=== PATIENT | female | born 1985 | race Caucasian/White ===

== ENCOUNTER 2017-01-13 11:30 | Observation (INO) ==
--- NOTE | 2017-01-13 11:45 | Emergency Department Note ---
Disposition Clinical Impression: Suicidal ideation Depression Qualifiers: Depression Type: unspecified Qualified Code(s): F32.9 - Major depressive disorder, single episode, unspecified Disposition: Admitted As Inpatient Condition: Fair Referrals: NONE,PCP [Primary Care Provider] - Forms: ED Satisfaction Letter Time of Disposition: 14:01 Psych HPI - General Chief Complaint: ED Psychiatric Symptoms Stated Complaint: SI Time Seen by Provider: 01/13/17 11:35 Source: patient Mode of arrival: ambulatory Limitations: no limitations Nursing Notes Reviewed: Yes Vital Signs Reviewed: Yes - History of Present Illness Pt complaint: suicidal ideation, feels depressed, anxiety Onset (ago): day(s) Duration: constant History of similar episodes: Yes Improves with: none Worsens with: none Alleged intoxication: No Associated Psychiatric Symptoms: depression, anxiety Associated symptoms: Reports: denies other symptoms Traumatic symptoms: denies traumatic injury Treatments prior to arrival: none Self harm or harm to others: admits thoughts of self harm - Related Data Previous Rx's Medication Instructions Recorded Ferrous Sulfate 325 mg PO BIDWM #30 tablet 11/29/15 Folic Acid 1 mg PO DAILY #30 tablet 11/29/15 HYDROcodone/Acet 5/325 mg [[place] 1 tab PO Q6H PRN #10 tab 04/15/16 5-325 mg] Allergies Allergy/AdvReac Type Severity Reaction Status Date / Time Amoxicillin Allergy Hives Verified 01/13/17 11:35 Cephalosporins Allergy Hives Verified 01/13/17 11:35 Penicillins Allergy Hives Verified 01/13/17 11:35 shellfish derived Allergy Difficulty Verified 01/13/17 11:35 Breathing All systems ED: reviewed and negative except as stated. Constitutional: Reports: as per HPI Eyes: Reports: as per HPI ENT ED: Reports: as per HPI Cardiovascular: Reports: as per HPI Respiratory: Reports: as per HPI Gastrointestinal: Reports: as per HPI Genitourinary: Reports: as per HPI Musculoskeletal: Reports: as per HPI Integumentary: Reports: as per HPI Neurological: Reports: as per HPI Psychiatric: Reports: anxiety, depression, suicidal thoughts Endocrine: Reports: as per HPI Hematological/Lymphatic: Reports: as per HPI Allergic/Immunologic: Reports: as per HPI Past Medical History - Past Medical History Source: patient Medical history: Reports: migraine, other Surgical history: Reports: (twice), other (tonsillectomy) Psychiatric history: Reports: no psych history [employer] history: Reports: no [employer]ACHINE [employer]PER[employer] history - Social History Smoking Status: Never smoker Smokeless Tobacco Status: No Alcohol use: Reports: none Drug use: Reports: none Physical Exam - General Limitations: no limitations General appearance: alert, in no apparent distress - Head Head exam: atraumatic - Eye Eye exam: Present: normal appearance, PERRL - ENT ENT exam: normal exam - Neck Neck exam: Present: normal inspection, full ROM - Chest Chest inspection: Present: normal inspection, symmetric chest wall rise - Respiratory Respiratory exam: Present: normal lung sounds bilaterally - Cardiovascular Cardiovascular exam: Present: regular rate, normal rhythm, normal heart sounds - Rectal Exam Rectal exam: Present: deferred - Extremities Exam Extremities exam: Present: normal inspection - Neurological Exam Neurological exam: Present: alert, oriented X3, CN II-XII intact - Psychiatric Psychiatric exam: Present: normal affect, normal mood - Skin Skin exam: Present: warm, dry, intact Course Course Narrative: Patient arrives complaining of anxiety and depression. I will attempt to clear her medically for behavioral evaluation - Reevaluation(s) Reevaluation #1: cleared medically for 1A behavioral eval at 12:25 Vital Signs Temperature 98.7 F 01/13/17 11:32 Pulse Rate 98 01/13/17 11:32 Respiratory Rate 16 01/13/17 11:32 Blood Pressure 161/95 01/13/17 11:32 O2 Sat by Pulse Oximetry 100 01/13/17 11:32 Temperature 98.7 F 01/13/17 11:32 Pulse Rate 98 01/13/17 11:32 Respiratory Rate 16 01/13/17 11:32 Blood Pressure 161/95 01/13/17 11:32 O2 Sat by Pulse Oximetry 100 01/13/17 11:32 Oxygen Delivery Oxygen Delivery Room Air Psych - Lab Data Lab results reviewed: Yes I reviewed the patient's lab results. Result diagrams: 01/13/17 11:47 01/13/17 11:47 Lab Results 01/13/17 01/13/17 01/13/17 Range/Units 11:46 11:46 11:46 WBC (4.3-11.1) K/mcL RBC (3.82-4.97) M/mcL Hgb (11.5-15.4) g/dL Hct (35.3-44.9) % MCV (83.0-100.0) fL MCH (28.0-33.3) pg MCHC (31.6-35.5) g/dL RDW (11.5-14.5) % Plt Count (140-400) K/mcL MPV (9.4-12.4) fL Immature Gran % (0-4) % Seg Neutrophils % % Lymphocytes % % Monocytes % % Eosinophils % % Basophils % % Neutrophils # (1.6-8.9) K/mcL Lymphocytes # (0.6-4.6) K/mcL Monocytes # (0.0-1.3) K/mcL Eosinophils # (0.0-0.6) K/mcL Basophils # (0.0-0.2) K/mcL Sodium (136-145) mEq/L Potassium (3.5-4.5) mEq/L Chloride (98-109) mEq/L Carbon Dioxide (19-29) mEq/L BUN (7-20) mg/dL Creatinine (0.57-1.11) mg/dL Est GFR ( Amer) (> 60) Est GFR (Non-Af Amer) (> 60) BUN/Creatinine Ratio (6-26) Glucose (70-99) mg/dL Calculated Osmolality (280-300) Calcium (8.6-10.8) mg/dL Urine Color Yellow (Yellow) Urine Clarity Clear (Clear) Urine pH 6.0 (5.0-8.0) pH Units Ur Specific [place] 1.030 H (1.010-1.025) Urine Protein Negative (Neg-Trace) mg/dL Urine Glucose (UA) Normal (Normal) mg/dL Urine Ketones Negative (Negative) mg/dL Urine Blood Negative (Negative) Urine Nitrite Negative (Negative) Urine Bilirubin Negative (Negative) Urine Urobilinogen Normal (Normal) mg/dL Ur Leukocyte Esterase Negative (Negative) Ur Culture Indicated? NO (NO) Urine Test Negative (Negative) Salicylates (15-30) mg/dL Urine Opiates Screen Negative (Yckjho=489) ng/mL Acetaminophen (10-30) mcg/mL Ur Barbiturates Screen Negative (Aufstu=704) ng/mL Ur Phencyclidine Scrn Negative (Cutoff=25) ng/mL Ur Amphetamines Screen Negative (Bvnwsp=4485) ng/mL U Benzodiazepines Scrn Negative (Sibzcp=860) ng/mL Urine Cocaine Screen Negative (Cutoff= 300) ng/mL U Marijuana (THC) Screen Negative (Cutoff = 50) ng/mL Ethyl Alcohol (0-10) mg/dL 01/13/17 01/13/17 Range/Units 11:47 11:47 WBC 5.7 (4.3-11.1) K/mcL RBC 4.72 (3.82-4.97) M/mcL Hgb 10.5 L (11.5-15.4) g/dL Hct 35.8 (35.3-44.9) % MCV 75.8 L (83.0-100.0) fL MCH 22.2 L (28.0-33.3) pg MCHC 29.3 L (31.6-35.5) g/dL RDW 16.5 H (11.5-14.5) % Plt Count 220 (140-400) K/mcL MPV 8.7 L (9.4-12.4) fL Immature Gran % 0.2 (0-4) % Seg Neutrophils % 73.8 % Lymphocytes % 19.9 % Monocytes % 4.5 % Eosinophils % 0.9 % Basophils % 0.7 % Neutrophils # 4.2 (1.6-8.9) K/mcL Lymphocytes # 1.1 (0.6-4.6) K/mcL Monocytes # 0.3 (0.0-1.3) K/mcL Eosinophils # 0.1 (0.0-0.6) K/mcL Basophils # 0.0 (0.0-0.2) K/mcL Sodium 139 (136-145) mEq/L Potassium 3.6 (3.5-4.5) mEq/L Chloride 107 (98-109) mEq/L Carbon Dioxide 21 (19-29) mEq/L BUN 12 (7-20) mg/dL Creatinine 0.89 (0.57-1.11) mg/dL Est GFR ( Amer) > 60 (> 60) Est GFR (Non-Af Amer) > 60 (> 60) BUN/Creatinine Ratio 13 (6-26) Glucose 109 H (70-99) mg/dL Calculated Osmolality 288 (280-300) Calcium 9.3 (8.6-10.8) mg/dL Urine Color (Yellow) Urine Clarity (Clear) Urine pH (5.0-8.0) pH Units Ur Specific [place] (1.010-1.025) Urine Protein (Neg-Trace) mg/dL Urine Glucose (UA) (Normal) mg/dL Urine Ketones (Negative) mg/dL Urine Blood (Negative) Urine Nitrite (Negative) Urine Bilirubin (Negative) Urine Urobilinogen (Normal) mg/dL Ur Leukocyte Esterase (Negative) Ur Culture Indicated? (NO) Urine Test (Negative) Salicylates < 5.0 L (15-30) mg/dL Urine Opiates Screen (Xpbhvl=212) ng/mL Acetaminophen < 1.0 L (10-30) mcg/mL Ur Barbiturates Screen (Eghejl=723) ng/mL Ur Phencyclidine Scrn (Cutoff=25) ng/mL Ur Amphetamines Screen (Fmpthw=8933) ng/mL U Benzodiazepines Scrn (Ypyphz=871) ng/mL Urine Cocaine Screen (Cutoff= 300) ng/mL U Marijuana (THC) Screen (Cutoff = 50) ng/mL Ethyl Alcohol < 10 (0-10) mg/dL Psychiatric Medical Clearance - Medical Clearance Checklist Medical History: Vaginal bleeding (Acute) Symptomatic anemia (Acute) PCOS (polycystic ovarian syndrome) (Chronic) Obesity (BMI 30-39.9) (Chronic) RUQ abdominal pain (Inactive) Severe anemia (Inactive) No Social History Section defined Current Vitals: Last Vital Signs Temp 98.7 F 01/13/17 11:32 Pulse 98 01/13/17 11:32 Resp 16 01/13/17 11:32 BP 161/95 01/13/17 11:32 Pulse Ox 100 01/13/17 11:32 Psychiatric Lab Panel: Drug Levels and Toxicity 01/13/17 01/13/17 11:46 11:47 Urine Opiates Screen Negative Acetaminophen < 1.0 L Ur Barbiturates Screen Negative Ur Phencyclidine Scrn Negative Ur Amphetamines Screen Negative U Benzodiazepines Scrn Negative Urine Cocaine Screen Negative U Marijuana (THC) Screen Negative Ethyl Alcohol < 10 Abnormal Labs: Abnormal lab results Hgb 10.5 g/dL (11.5-15.4) L 01/13/17 11:47 MCV 75.8 fL (83.0-100.0) L 01/13/17 11:47 MCH 22.2 pg (28.0-33.3) L 01/13/17 11:47 MCHC 29.3 g/dL (31.6-35.5) L 01/13/17 11:47 RDW 16.5 % (11.5-14.5) H 01/13/17 11:47 MPV 8.7 fL (9.4-12.4) L 01/13/17 11:47 Glucose 109 mg/dL (70-99) H 01/13/17 11:47 Ur Specific [place] 1.030 (1.010-1.025) H 01/13/17 11:46 Salicylates < 5.0 mg/dL (15-30) L 01/13/17 11:47 Acetaminophen < 1.0 mcg/mL (10-30) L 01/13/17 11:47 Statement of Medical Clearance: I have evaluated the patient, reviewed diagnostic information, and certify that the patient's medical condition is sufficiently stable that transfer to the psychiatric unit does not pose a significant risk of deterioration.
[2017-01-13 11:52] LABS: Bilirubin,Urine Negative (Negative); Blood,Urine Negative (Negative); Clarity,Urine Clear (Clear); Color,Urine Yellow (Yellow); Glucose,Urine (UA) Normal (Normal); Ketones,Urine Negative (Negative); Leukocyte Esterase,Urine Negative (Negative); Nitrite,Urine Negative (Negative); Protein,Urine Negative (Neg-Trace); Urobilinogen,Urine Normal (Normal)
[2017-01-13 11:55] LABS: Eosinophils % 0.9 %; Hematocrit 35.8 % (35.3-44.9); Hemoglobin 10.5 g/dL (11.5-15.4); Immature Granulocytes % 0.2 % (0-4); Lymphocytes % 19.9 %; Mean Corpuscular HGB Conc 29.3 g/dL (31.6-35.5); Mean Corpuscular Hemoglobin 22.2 pg (28.0-33.3); Mean Corpuscular Volume 75.8 fL (83.0-100.0); Mean Platelet Volume 8.7 fL (9.4-12.4); Monocytes % 4.5 %; Platelet Count 220 K/mcL (140-400); Red Blood Count 4.72 M/mcL (3.82-4.97); Red Cell Distribution Width 16.5 % (11.5-14.5); Segmented Neutrophils % 73.8 %
[2017-01-13 11:56] LABS: Basophils % 0.7 %; Eosinophils # 0.1 K/mcL (0.0-0.6); Lymphocytes # 1.1 K/mcL (0.6-4.6); Monocytes # 0.3 K/mcL (0.0-1.3); Neutrophils # 4.2 K/mcL (1.6-8.9)
[2017-01-13 12:10] LABS: Acetaminophen < 1.0 mcg/mL (10-30); BUN/Creatinine Ratio 13 (6-26); Blood Urea Nitrogen 12 mg/dL (7-20); Calcium 9.3 mg/dL (8.6-10.8); Carbon Dioxide 21 mEq/L (19-29); Chloride 107 mEq/L (98-109); Ethanol < 10 mg/dL (0-10); Glucose 109 mg/dL (70-99); Osmolality,Calculated 288 (280-300); Potassium 3.6 mEq/L (3.5-4.5); Salicylate < 5.0 mg/dL (15-30); Sodium 139 mEq/L (136-145); eGFR For African Americans > 60 (> 60); eGFR For Non-African Americans > 60 (> 60)
[2017-01-13 12:23] LABS: Amphetamine Screen,Urine Negative ng/mL (Cutoff=1000); Barbiturate Screen,Urine Negative ng/mL (Cutoff=200); Benzodiazepines Screen,Urine Negative ng/mL (Cutoff=200); Cannabinoid Screen,Urine Negative ng/mL (Cutoff = 50); Cocaine Screen,Urine Negative ng/mL (Cutoff= 300); Opiate Screen,Urine Negative ng/mL (Cutoff=300); Phencyclidine Screen,Urine Negative ng/mL (Cutoff=25)
[2017-01-13] MEDS ORDERED: Mag Hydrox/Al Hydrox/Simeth 30 ML UDC PO PRN (15:39)
[2017-01-13] MEDS ORDERED: MOM Conc 10 ML UD.LIQ PO PRN (15:39)
[2017-01-13] MEDS ORDERED: hydrOXYzine pamoate 25 MG CAPSULE PO PRN (15:39)
[2017-01-13] MEDS ORDERED: Ibuprofen 400 MG TABLET PO PRN (15:39)
[2017-01-13] MEDS ORDERED: *HR* LORazepam 2 MG/ML VIAL IM PRN (15:39)
[2017-01-13] MEDS ORDERED: Haloperidol Lactate 5 MG/ML VIAL IM PRN (15:39)
[2017-01-13] MEDS ORDERED: *HR* LORazepam 1 MG TABLET PO PRN (15:39)
[2017-01-13] MEDS ORDERED: traZODone 50 MG TABLET PO PRN (15:39)
[2017-01-13 17:58] LABS: Thyroid Stimulating Hormone 1.121 mcIU/mL (0.350-4.840)
[2017-01-14 08:04] VITALS: BP 124/82
--- NOTE | 2017-01-14 10:40 | Psychiatry History & Physical ---
Date of Encounter: 01/14/17 Time of Encounter: 10:25 History of Present Illness Patient Stated Chief Complaint: i think it was miscommunication Medicare Admission Attestation: For traditional Medicare patients the provided hospital inpatient services are reasonable and necessary and in the case of services not specified as inpatient -only under 42 CFR 419.22 (n), that they are appropriately provided as inpatient services in accordance 42 CFR 412.3. For Critical Access Hospital the patient may reasonably be expected to be discharged or transferred to a hospital within 96 hours after admission to the Critical Access Hospital. Admitted From: Emergency Dept Plans for Post Hospital Care: Home History of Present Illness: Ms. Mantilla is a 31 year old MW female evaluated today , she presented to ER with depression and suicidal thoughts but no plan , was admitted for observation , she feels that after argument with her last week she felt nothing , constant crying , feeling over whelmed, missed work 2 days then she bought herself to ER to get help, as i tried and could not. she has no prior psych history , she live and 2 girls, she works as counsellor. she denies any drug history , no psychosis , denies manic episode . she at present is sad , unhappy but no suicidal ideation or plan. states i would never hurt yourself , states when i was 16 i used to cut my self , but none since. medical: she has h/o chronic anaemia sec. to mennorhagia and has had ablation done. she is getting tested for lupus. other than that no other medical problems. Past Med Surg Social Fam HX - Past Medical History Source: patient Medical history: migraine, other - Past Surgical History Surgical History: , other - Social History Smoking Status: Never smoker Smokeless Tobacco Status: No Alcohol use: none Drug use: none Medications & Allergies No Known Home Drugs 01/13/17 [History] 3 Allergy/AdvReac Type Severity Reaction Status Date / Time Amoxicillin Allergy Hives Verified 01/13/17 11:35 Cephalosporins Allergy Hives Verified 01/13/17 11:35 Penicillins Allergy Hives Verified 01/13/17 11:35 shellfish derived Allergy Difficulty Verified 01/13/17 11:35 Breathing Review of Systems Psychiatric: Reports: depression, abnormal sleep pattern, difficulty concentrating Mental Status Exam Patient orientation: Yes Person, Yes Time, Yes Place Level of alertness: Alert Patient appearance: Appropriate Behavior: calm, cooperative Psychomotor activity: Normal Eye contact: Maintains Eye Contact Mood description: Euthymic/stable Patient description of mood: i feel content and hopeful and there is clarity. Affect description: congruent with mood Speech pattern: Normal rate, Normal rhythm, Normal tone, Coherent Exam - HEENT Head exam IM: Present: atraumatic, normal inspection, normocephalic Eye exam IM: Present: normal appearance ENT exam IM: Present: normal exam - Neurological Neurological exam IM: Present: alert, CN II-XII intact, normal gait, oriented X3 , no focal deficits Results - Vital Signs Vital signs: Temp Pulse Resp BP Pulse Ox 97.5 F L 68 18 124/82 100 01/14/17 08:03 01/14/17 08:03 01/14/17 08:03 01/14/17 08:03 01/13/17 11:32 - Labs Labs: Laboratory Last Values WBC 5.7 K/mcL (4.3-11.1) 01/13/17 11:47 RBC 4.72 M/mcL (3.82-4.97) 01/13/17 11:47 Hgb 10.5 g/dL (11.5-15.4) L 01/13/17 11:47 Hct 35.8 % (35.3-44.9) 01/13/17 11:47 MCV 75.8 fL (83.0-100.0) L 01/13/17 11:47 MCH 22.2 pg (28.0-33.3) L 01/13/17 11:47 MCHC 29.3 g/dL (31.6-35.5) L 01/13/17 11:47 RDW 16.5 % (11.5-14.5) H 01/13/17 11:47 Plt Count 220 K/mcL (140-400) 01/13/17 11:47 MPV 8.7 fL (9.4-12.4) L 01/13/17 11:47 Immature Gran % 0.2 % (0-4) 01/13/17 11:47 Seg Neutrophils % 73.8 % 01/13/17 11:47 Lymphocytes % 19.9 % 01/13/17 11:47 Monocytes % 4.5 % 01/13/17 11:47 Eosinophils % 0.9 % 01/13/17 11:47 Basophils % 0.7 % 01/13/17 11:47 Neutrophils # 4.2 K/mcL (1.6-8.9) 01/13/17 11:47 Lymphocytes # 1.1 K/mcL (0.6-4.6) 01/13/17 11:47 Monocytes # 0.3 K/mcL (0.0-1.3) 01/13/17 11:47 Eosinophils # 0.1 K/mcL (0.0-0.6) 01/13/17 11:47 Basophils # 0.0 K/mcL (0.0-0.2) 01/13/17 11:47 Sodium 139 mEq/L (136-145) 01/13/17 11:47 Potassium 3.6 mEq/L (3.5-4.5) 01/13/17 11:47 Chloride 107 mEq/L (98-109) 01/13/17 11:47 Carbon Dioxide 21 mEq/L (19-29) 01/13/17 11:47 BUN 12 mg/dL (7-20) 01/13/17 11:47 Creatinine 0.89 mg/dL (0.57-1.11) 01/13/17 11:47 Est GFR ( Amer) > 60 (> 60) 01/13/17 11:47 Est GFR (Non-Af Amer) > 60 (> 60) 01/13/17 11:47 BUN/Creatinine Ratio 13 (6-26) 01/13/17 11:47 Glucose 109 mg/dL (70-99) H 01/13/17 11:47 Calculated Osmolality 288 (280-300) 01/13/17 11:47 Calcium 9.3 mg/dL (8.6-10.8) 01/13/17 11:47 TSH 1.121 mcIU/mL (0.350-4.840) 01/13/17 11:47 Urine Color Yellow (Yellow) 01/13/17 11:46 Urine Clarity Clear (Clear) 01/13/17 11:46 Urine pH 6.0 pH Units (5.0-8.0) 01/13/17 11:46 Ur Specific [place] 1.030 (1.010-1.025) H 01/13/17 11:46 Urine Protein Negative mg/dL (Neg-Trace) 01/13/17 11:46 Urine Glucose (UA) Normal mg/dL (Normal) 01/13/17 11:46 Urine Ketones Negative mg/dL (Negative) 01/13/17 11:46 Urine Blood Negative (Negative) 01/13/17 11:46 Urine Nitrite Negative (Negative) 01/13/17 11:46 Urine Bilirubin Negative (Negative) 01/13/17 11:46 Urine Urobilinogen Normal mg/dL (Normal) 01/13/17 11:46 Ur Leukocyte Esterase Negative (Negative) 01/13/17 11:46 Ur Culture Indicated? NO (NO) 01/13/17 11:46 Urine Test Negative (Negative) 01/13/17 11:46 Salicylates < 5.0 mg/dL (15-30) L 01/13/17 11:47 Urine Opiates Screen Negative ng/mL (Rhvfbj=862) 01/13/17 11:46 Acetaminophen < 1.0 mcg/mL (10-30) L 01/13/17 11:47 Ur Barbiturates Screen Negative ng/mL (Yxfjyt=288) 01/13/17 11:46 Ur Phencyclidine Scrn Negative ng/mL (Cutoff=25) 01/13/17 11:46 Ur Amphetamines Screen Negative ng/mL (Ubgsnb=4250) 01/13/17 11:46 U Benzodiazepines Scrn Negative ng/mL (Qcusqu=273) 01/13/17 11:46 Urine Cocaine Screen Negative ng/mL (Cutoff= 300) 01/13/17 11:46 U Marijuana (THC) Screen Negative ng/mL (Cutoff = 50) 01/13/17 11:46 Ethyl Alcohol < 10 mg/dL (0-10) 01/13/17 11:47
--- NOTE | 2017-01-14 10:46 | Discharge Summary ---
Date of Encounter: 01/14/17 Time of Encounter: 10:20 History of Present Illness Chief complaint: it was miscommunication Admitted From: Emergency Dept History of Present Illness: Ms. Mantilla is a 31 year old MW female evaluated today , she presented to ER with depression and suicidal thoughts but no plan , was admitted for observation , she feels that after argument with her last week she felt nothing , constant crying , feeling over whelmed, missed work 2 days then she bought herself to ER to get help, as i tried and could not. she has no prior psych history , she live and 2 girls, she works as counsellor. she denies any drug history , no psychosis , denies manic episode . she at present is sad , unhappy but no suicidal ideation or plan. she has some anxiety and in past has had panic attacks. states i would never hurt yourself , states when i was 16 i used to cut my self , but none since. medical: she has h/o chronic anaemia sec. to mennorhagia and has had ablation done. she is getting tested for lupus. other than that no other medical problems. Patient will be discharged today , lives with her family. follow with S[facility] Reagan and PCP Dr Torres Past Med Surg Social Fam HX - Past Medical History Medical history: migraine, other - Past Psychiatric History Psychiatric history: Reports: no psych history Family psychiatric history: Yes Family Psychiatric History Details: father dx with bi[olar and alcohol dependence Family History of Suicide: None - Past Surgical History Surgical History: , other - Social History Smoking Status: Never smoker Smokeless Tobacco Status: No Alcohol use: none Drug use: none Occupational status: employed Current living situation: Home, With Family Activity Level: Independent ambulation Recent Out of Country Travel Within the Last 8 Weeks: No Exposure or Possible Exposure to Illness During Travel: No Medications - Discharge Medications Prescriptions: Sertraline [Zoloft] 50 mg PO DAILY #30 tablet traZODone [TraZODone] 50 mg PO HS PRN #20 tablet PRN Reason: Insomnia Sertraline [Zoloft] 50 mg PO DAILY #30 tablet 01/14/17 [Rx] traZODone [TraZODone] 50 mg PO HS PRN #20 tablet 01/14/17 [Rx] 3 Allergy/AdvReac Type Severity Reaction Status Date / Time Amoxicillin Allergy Hives Verified 01/13/17 11:35 Cephalosporins Allergy Hives Verified 01/13/17 11:35 Penicillins Allergy Hives Verified 01/13/17 11:35 shellfish derived Allergy Difficulty Verified 01/13/17 11:35 Breathing Review of Systems Psychiatric: Reports: depression, abnormal sleep pattern, difficulty concentrating Mental Status Exam - Mental Status Exam Patient orientation: Yes Person, Yes Time, Yes Place Level of alertness: Alert Patient appearance: Appropriate Behavior: calm, cooperative Psychomotor activity: Normal Eye contact: Maintains Eye Contact Mood description: Euthymic/stable Patient description of mood: i feel content and hopeful. Affect description: congruent with mood Speech pattern: Normal rate, Normal rhythm, Normal tone, Coherent Speech Volume: Normal Thought process: Intact Thought Content: Yes Intact Judgment: Good Insight: Full Results - Vital Signs Vital signs: Temp Pulse Resp BP Pulse Ox 97.5 F L 68 18 124/82 100 01/14/17 08:03 01/14/17 08:03 01/14/17 08:03 01/14/17 08:03 01/13/17 11:32 - Labs Labs: Laboratory Last Values WBC 5.7 K/mcL (4.3-11.1) 01/13/17 11:47 RBC 4.72 M/mcL (3.82-4.97) 01/13/17 11:47 Hgb 10.5 g/dL (11.5-15.4) L 01/13/17 11:47 Hct 35.8 % (35.3-44.9) 01/13/17 11:47 MCV 75.8 fL (83.0-100.0) L 01/13/17 11:47 MCH 22.2 pg (28.0-33.3) L 01/13/17 11:47 MCHC 29.3 g/dL (31.6-35.5) L 01/13/17 11:47 RDW 16.5 % (11.5-14.5) H 01/13/17 11:47 Plt Count 220 K/mcL (140-400) 01/13/17 11:47 MPV 8.7 fL (9.4-12.4) L 01/13/17 11:47 Immature Gran % 0.2 % (0-4) 01/13/17 11:47 Seg Neutrophils % 73.8 % 01/13/17 11:47 Lymphocytes % 19.9 % 01/13/17 11:47 Monocytes % 4.5 % 01/13/17 11:47 Eosinophils % 0.9 % 01/13/17 11:47 Basophils % 0.7 % 01/13/17 11:47 Neutrophils # 4.2 K/mcL (1.6-8.9) 01/13/17 11:47 Lymphocytes # 1.1 K/mcL (0.6-4.6) 01/13/17 11:47 Monocytes # 0.3 K/mcL (0.0-1.3) 01/13/17 11:47 Eosinophils # 0.1 K/mcL (0.0-0.6) 01/13/17 11:47 Basophils # 0.0 K/mcL (0.0-0.2) 01/13/17 11:47 Sodium 139 mEq/L (136-145) 01/13/17 11:47 Potassium 3.6 mEq/L (3.5-4.5) 01/13/17 11:47 Chloride 107 mEq/L (98-109) 01/13/17 11:47 Carbon Dioxide 21 mEq/L (19-29) 01/13/17 11:47 BUN 12 mg/dL (7-20) 01/13/17 11:47 Creatinine 0.89 mg/dL (0.57-1.11) 01/13/17 11:47 Est GFR ( Amer) > 60 (> 60) 01/13/17 11:47 Est GFR (Non-Af Amer) > 60 (> 60) 01/13/17 11:47 BUN/Creatinine Ratio 13 (6-26) 01/13/17 11:47 Glucose 109 mg/dL (70-99) H 01/13/17 11:47 Calculated Osmolality 288 (280-300) 01/13/17 11:47 Calcium 9.3 mg/dL (8.6-10.8) 01/13/17 11:47 TSH 1.121 mcIU/mL (0.350-4.840) 01/13/17 11:47 Urine Color Yellow (Yellow) 01/13/17 11:46 Urine Clarity Clear (Clear) 01/13/17 11:46 Urine pH 6.0 pH Units (5.0-8.0) 01/13/17 11:46 Ur Specific [place] 1.030 (1.010-1.025) H 01/13/17 11:46 Urine Protein Negative mg/dL (Neg-Trace) 01/13/17 11:46 Urine Glucose (UA) Normal mg/dL (Normal) 01/13/17 11:46 Urine Ketones Negative mg/dL (Negative) 01/13/17 11:46 Urine Blood Negative (Negative) 01/13/17 11:46 Urine Nitrite Negative (Negative) 01/13/17 11:46 Urine Bilirubin Negative (Negative) 01/13/17 11:46 Urine Urobilinogen Normal mg/dL (Normal) 01/13/17 11:46 Ur Leukocyte Esterase Negative (Negative) 01/13/17 11:46 Ur Culture Indicated? NO (NO) 01/13/17 11:46 Urine Test Negative (Negative) 01/13/17 11:46 Salicylates < 5.0 mg/dL (15-30) L 01/13/17 11:47 Urine Opiates Screen Negative ng/mL (Rrrbis=573) 01/13/17 11:46 Acetaminophen < 1.0 mcg/mL (10-30) L 01/13/17 11:47 Ur Barbiturates Screen Negative ng/mL (Uvzihs=771) 01/13/17 11:46 Ur Phencyclidine Scrn Negative ng/mL (Cutoff=25) 01/13/17 11:46 Ur Amphetamines Screen Negative ng/mL (Afmtaj=5715) 01/13/17 11:46 U Benzodiazepines Scrn Negative ng/mL (Qyyulp=317) 01/13/17 11:46 Urine Cocaine Screen Negative ng/mL (Cutoff= 300) 01/13/17 11:46 U Marijuana (THC) Screen Negative ng/mL (Cutoff = 50) 01/13/17 11:46 Ethyl Alcohol < 10 mg/dL (0-10) 01/13/17 11:47 Diagnosis - Discharge Diagnosis (1) Suicidal ideation Status: Resolved Comments: patient not suicidal or homicidal (2) Major depressive disorder with single episode Status: Acute Comments: patient at present denies any significant depression , wanted help and denies any suicidal ideation. at present not in immenent danger to self/others Qualifiers: Active/Remission status: currently active Major depression episode severity : moderate Qualified Code(s): F32.1 - Major depressive disorder, single episode, moderate Assessment and Plan - Patient/Caregiver Discharge Instructions Activity: resume usual activities as tolerated, return to work Diet: regular diet - Follow up Plan Follow up with: NONE,PCP [Primary Care Provider] - Functional capacity at discharge: independent ambulation Overall status at discharge: patient is back to baseline Disposition: Home, Self-Care Provider Date of admission: 01/13/17 14:17 Patient was evaluated and was put on observation as bought self to ER c/o depression and suicidal ideation but no plan , she wanted help as she could not get in to see anyone early, netta she came to ER , she has good support system, 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 she denied any side effects and feels better today , no suicidal ideation and slept well , wants to be discharged as not in immenent danger to self/others at present. Primary care physician: PCP NONE Hospital Course Hospital course: Ms. Mantilla is a 31 year old female was admitted for observation , for depression and suicidal ideation , she denies any at present and not in danger to self. she was started on zoloft and trazodone and it has helped her sleep, she denies side effects. she was given appointment for psychiatrist and her PCP. Time spent discussing smoking cessation with patient: 3 to 10 minutes Does patient wish to continue nicotine replacement upon disc: No - Time Spent with Patient Total time spent providing and/or coordinating discharge services: Greater than 30 minutes Procedures - Procedures Procedures: Medication Management, Crisis Stabilization, Supportive Therapy, Group Therapy Quality - Multiple Antipsychotics Patient discharged on 2 or more antipsychotic medications: No
== END 2017-01-14 12:35 | disposition home or self-care (01) ==
LOC: 1ANU 11:30 → EMEROO 11:30 → 1ANU 14:40
PROVIDERS: ADMIT Psychiatry & Neurology Psychiatry; ATTEND Psychiatry & Neurology Psychiatry

== ENCOUNTER 2018-07-28 08:48 | Observation (INO) ==
--- NOTE | 2018-07-28 09:04 | Emergency Department Note ---
Disposition Clinical Impression: Facial droop Migraine Qualifiers: Migraine type: unspecified Status migrainosus presence: with status migrainosus Intractability: intractable Qualified Code(s): G43.911 - Migraine, unspecified, intractable, with status migrainosus Disposition: Admitted As Inpatient Condition: Fair Time of Disposition: 16:16 Headache HPI - General Chief Complaint: ED Headache Stated Complaint: migraine, "facial droop" Time Seen by Provider: 07/28/18 08:53 Limitations: no limitations Nursing Notes Reviewed: Yes Vital Signs Reviewed: Yes - History of Present Illness HPI Narrative: 33-year-old female presents emergency Department with concerns of acute onset headache and right facial droop. Patient states she has had a headache over the past 2-3 days, she woke this morning with right-sided facial droop. Patient denies other focal neurologic deficits. Patient is unchanged. Patient denies fever, chills, nausea, vomiting, diarrhea. No recent trauma. No changes in medications. Patient states she has a history of lupus and sarcoidosis. Pain Scale: 8 - Related Data Home Medications Medication Instructions Recorded Confirmed Amitriptyline [Elavil] 25 mg PO DAILY 07/28/18 07/28/18 Atorvastatin Calcium [Lipitor] 20 mg PO DAILY 07/28/18 07/28/18 Baclofen 10 mg PO PRN PRN MDD 3 07/28/18 07/28/18 Erenumab-Aooe [Aimovig 70 mg SQ QMONTH 07/28/18 07/28/18 Autoinjector] Hydroxychloroquine Sulfate 200 mg PO BID 07/28/18 07/28/18 [Plaquenil] Ibuprofen [Ibu] 800 mg PO TID 07/28/18 07/28/18 Lamotrigine [Lamictal (Blue)] 50 mg PO BID 07/28/18 07/28/18 Pantoprazole Sodium [Protonix] 40 mg PO DAILY 07/28/18 07/28/18 Prazosin [Minipress] 1 mg PO DAILY 07/28/18 07/28/18 Sertraline [Zoloft] 200 mg PO DAILY 07/28/18 07/28/18 hydrOXYzine HCl [Hydroxyzine HCl] 100 mg PO TID 07/28/18 07/28/18 Previous Rx's Medication Instructions Recorded Metoclopramide [Reglan] 10 mg PO QIDAC #12 tablet 02/19/17 Allergies Allergy/AdvReac Type Severity Reaction Status Date / Time Amoxicillin Allergy Hives Verified 01/13/17 11:35 Cephalosporins Allergy Hives Verified 01/13/17 11:35 Penicillins Allergy Hives Verified 01/13/17 11:35 shellfish derived Allergy Difficulty Verified 01/13/17 11:35 Breathing All systems ED: reviewed and negative except as stated. Review of Systems: As Per HPI Headache PMH - Past Medical History Medical history: Reports: migraine, other Female Surgical History: Reports: , other Psychiatric history: Reports: no psych history G[employer] AND SILVER ASSAYER history: Reports: no GOLD AND SILVER ASSAYER history - Social History Smoking Status: Never smoker Alcohol use: Reports: none Drug use: Reports: none Physical Exam General: Alert and in no acute distress Skin: Warm, dry, intact Head: Normocephalic and atraumatic Neck: Supple, trachea midline and no tenderness Cardiovascular: RRR, no murmur, normal perfusion Respiratory: CTAB, no wheezing, cough, or respiratory distress Musculoskeletal: Normal strength, no tenderness, swelling or deformity GI: Soft, nontender, nondistended. Bowel sounds present Neuro: A&O to person, place, time and situation. Patient has right facial droop to exam. Forehead is spared. Extraocular muscle intact to examination. Pupils are equal and reactive to light bilaterally. Bilateral upper extremity and lower extremity strength intact. [id number] and unit dose testing intact. Psychiatric: cooperative and appropriate mood and affect. - General Limitations: no limitations General appearance: alert, in no apparent distress Course Vital Signs Temperature 98.5 F 07/28/18 08:51 Pulse Rate 85 07/28/18 08:51 Respiratory Rate 14 07/28/18 08:51 Blood Pressure 159/99 07/28/18 08:51 O2 Sat by Pulse Oximetry 100 07/28/18 08:51 Temperature 98.1 F 07/28/18 15:01 Pulse Rate 79 07/28/18 15:01 Respiratory Rate 18 07/28/18 15:01 Blood Pressure 110/77 07/28/18 15:01 O2 Sat by Pulse Oximetry 98 07/28/18 15:01 Oxygen Delivery Oxygen Delivery Room Air Headache - MDM Narrative Medical decision making narrative: Stroke alert was called during the initial evaluation. [facility] neurology evaluated the patient via telephone neurology. 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 Neurology recommended patient be treated for her headache and admitted if her symptoms did not improve. Patient was given migraine cocktail emergency department with moderate improvement in her headache but with persistence of the facial droop. She was admitted to hospitalist for further care and evaluation. - Medical Records Medical records reviewed: Yes I reviewed the patient's medical records. - Lab Data Lab results reviewed: Yes I reviewed the patient's lab results. Result diagrams: 07/28/18 09:11 07/28/18 09:11 Lab Results 07/28/18 07/28/18 07/28/18 Range/Units 08:52 09:11 09:11 WBC 5.9 (4.3-11.1) K/mcL RBC 4.61 (3.82-4.97) M/mcL Hgb 14.0 (11.5-15.4) g/dL Hct 41.5 (35.3-44.9) % MCV 90.0 (83.0-100.0) fL MCH 30.4 (28.0-33.3) pg MCHC 33.7 (31.6-35.5) g/dL RDW 13.5 (11.5-14.5) % Plt Count 168 (140-400) K/mcL MPV 8.9 L (9.4-12.4) fL PT 11.4 (9.4-12.1) Seconds INR 1.0 APTT 32.0 (26.0-36.0) Seconds Sodium (136-145) mEq/L Potassium (3.5-5.1) mEq/L Chloride (98-107) mEq/L Carbon Dioxide (23-29) mEq/L BUN (6-20) mg/dL Creatinine (0.60-1.20) mg/dL Est GFR ( Amer) (> 60) Est GFR (Non-Af Amer) (> 60) BUN/Creatinine Ratio (6-26) Glucose (70-105) mg/dL POC Glucose 98 (70-99) mg/dL Calculated Osmolality (280-300) Calcium (8.6-10.3) mg/dL Troponin I (< 0.04) ng/mL 06/18/19 Range/Units 09:11 WBC (4.3-11.1) K/mcL RBC (3.82-4.97) M/mcL Hgb (11.5-15.4) g/dL Hct (35.3-44.9) % MCV (83.0-100.0) fL MCH (28.0-33.3) pg MCHC (31.6-35.5) g/dL RDW (11.5-14.5) % Plt Count (140-400) K/mcL MPV (9.4-12.4) fL PT (9.4-12.1) Seconds INR APTT (26.0-36.0) Seconds Sodium 137 (136-145) mEq/L Potassium 4.1 (3.5-5.1) mEq/L Chloride 107 (98-107) mEq/L Carbon Dioxide 23 (23-29) mEq/L BUN 12 (6-20) mg/dL Creatinine 0.81 (0.60-1.20) mg/dL Est GFR ( Amer) > 60 (> 60) Est GFR (Non-Af Amer) > 60 (> 60) BUN/Creatinine Ratio 15 (6-26) Glucose 110 H (70-105) mg/dL POC Glucose (70-99) mg/dL Calculated Osmolality 284 (280-300) Calcium 9.1 (8.6-10.3) mg/dL Troponin I < 0.03 (< 0.04) ng/mL - Radiology Data Radiology results reviewed: Yes I reviewed the patient's radiology results. - EKG Data EKG attestation: Yes I reviewed and interpreted this EKG. EKG results narrative: Normal sinus rhythm with a rate of 78 without evidence of STEMI or other dysrhythmia. QTC of 453, QRS of 98.
[2018-07-28 09:15] LABS: Hematocrit 41.5 % (35.3-44.9); Mean Corpuscular HGB Conc 33.7 g/dL (31.6-35.5); Mean Corpuscular Hemoglobin 30.4 pg (28.0-33.3); Mean Platelet Volume 8.9 fL (9.4-12.4); Platelet Count 168 K/mcL (140-400); Red Blood Count 4.61 M/mcL (3.82-4.97); Red Cell Distribution Width 13.5 % (11.5-14.5); White Blood Count 5.9 K/mcL (4.3-11.1)
[2018-07-28] MEDS ORDERED: Metoclopramide 10 MG/2 ML VIAL IVP ONE (09:16)
[2018-07-28] MEDS ORDERED: Ketorolac 15 MG/ML VIAL IVP ONE (09:16)
[2018-07-28] MEDS ORDERED: 0.9 % Sodium Chloride 1,000 ML IVC ONE (09:17)
[2018-07-28 09:23] LABS: Prothrombin Time 11.4 Seconds (9.4-12.1)
[2018-07-28 09:39] LABS: BUN/Creatinine Ratio 15 (6-26); Blood Urea Nitrogen 12 mg/dL (6-20); Calcium 9.1 mg/dL (8.6-10.3); Carbon Dioxide 23 mEq/L (23-29); Chloride 107 mEq/L (98-107); Glucose 110 mg/dL (70-105); Osmolality,Calculated 284 (280-300); Potassium 4.1 mEq/L (3.5-5.1); Sodium 137 mEq/L (136-145); Troponin I < 0.03 ng/mL (< 0.04); eGFR For African Americans > 60 (> 60); eGFR For Non-African Americans > 60 (> 60)
[2018-07-28] MEDS ORDERED: Aspirin 81 MG TAB.CHEW PO ONE (11:25)
[2018-07-28] MEDS ORDERED: Naloxone 0.4 MG/ML INJ IVP PRN (13:49)
[2018-07-28] MEDS ORDERED: Ondansetron 4 MG/2 ML VIAL IVP PRN ×2 (13:49→14:34)
[2018-07-28] MEDS ORDERED: Acetaminophen 325 MG TABLET PO PRN (13:49)
--- NOTE | 2018-07-28 14:10 | Internal Med History&Physical ---
<Kristi Zavala - Last Filed: 07/28/18 16:24> Date of Encounter: 07/28/18 Time of Encounter: 14:07 Internal Medicine - H&P: HPI Chief complaint: headache Admitted From: Emergency Dept Plans for Post Hospital Care: Home History of present illness: Ms. José is a 33 year old female with past medical history of lupus, sarcoidosis, migraines presented to [facility] complaining of headache and facial droop. The patient reported that her headache started Friday and has been constant since with the feeling of deep ache. This feels similar to previous migraines however in the past it was on the top of her head and this time it is more localized to the top right. She has associated aura, photosensitivity, noise sensitivity, nausea, vomiting, and diplopia. Laying down a quiet room has helped. 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 Yesterday the left side of her neck was hurting but has since resolved. She came to the hospital because this morning she woke up and the right side of her face felt heavy and numb and when she looked in the mere she had right facial droop. In the past only her eye has ever felt heavy. She reports she has been to the ED multiple times in the past when her migraines make her vomit and she is given medications which help relieve the migraine and then she is discharged. She denied trauma, confusion, loss of vision, weakness, chest pain, shortness of breath, fever, chills. She has history of migraines for which she takes Aimovig and Trokendi prophylactically which have decreased her migraines from 2 times a week to 2 times a month. 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 She denied smoking, alcohol, drug use. No personal or family history of clotting disorder. Her grandmother and grandfather mom side did of IA. She is a full code. Initial vitals in the ED were tempter 98.5, HR 85, BP 159/99. CBC, BMP, PT/INR, troponin were all unremarkable. Head CT showed no acute intracranial abnormality. In the ED the patient was given Reglan, Toradol, Benadryl, aspirin 324 mg, IVF bolus. Brain MRI pending. Past Med Surg Social Fam HX - Past Medical History Attestation: Yes The following information was validated with the patient. Source: patient Medical history: migraine, other Additional medical history: SLE, Sjogren Psychiatric history: no psych history - Past Surgical History Surgical History: , other Additional surgical history: D&C, ablation - Social History Smoking Status: Never smoker Smokeless Tobacco Status: No Alcohol use: none Drug use: none - Family History Grandmother Hx Family Cardiac Disorders: Yes (IA) Internal Medicine - H&P: Meds Metoclopramide [Reglan] 10 mg PO QIDAC #12 tablet 02/19/17 [Rx] Amitriptyline [Elavil] 25 mg PO DAILY 07/28/18 [History] Atorvastatin Calcium [Lipitor] 20 mg PO DAILY 07/28/18 [History] Baclofen 10 mg PO PRN PRN MDD 3 07/28/18 [History] Erenumab-Aooe [Aimovig Autoinjector] 70 mg SQ QMONTH 07/28/18 [History] Hydroxychloroquine Sulfate [Plaquenil] 200 mg PO BID 07/28/18 [History] Ibuprofen [Ibu] 800 mg PO TID 07/28/18 [History] Lamotrigine [Lamictal (Blue)] 50 mg PO BID 07/28/18 [History] Pantoprazole Sodium [Protonix] 40 mg PO DAILY 07/28/18 [History] Prazosin [Minipress] 1 mg PO DAILY 07/28/18 [History] Sertraline [Zoloft] 200 mg PO DAILY 07/28/18 [History] hydrOXYzine HCl [Hydroxyzine HCl] 100 mg PO TID 07/28/18 [History] Allergy/AdvReac Type Severity Reaction Status Date / Time Amoxicillin Allergy Hives Verified 01/13/17 11:35 Cephalosporins Allergy Hives Verified 01/13/17 11:35 Penicillins Allergy Hives Verified 01/13/17 11:35 shellfish derived Allergy Difficulty Verified 01/13/17 11:35 Breathing All Systems PM: A 10-system review of systems was performed and is negative for pertinent findings except as documented above in the HPI. - Constitutional Constitutional: no chills, no fever(s) - EENT Eyes: diplopia, photophobia Nose, mouth and throat: neck pain - Cardiovascular Cardiovascular ROS IM: no chest pain, no dyspnea - Respiratory Respiratory: no cough, no dyspnea, no wheezing - Gastrointestinal Gastrointestinal: nausea, vomiting, no abdominal pain - Integumentary Integumentary IM: no rash, no skin ulcer - Neurological Neurological ROS: headache(s), numbness (Right face), no abnormal gait, no abnormal speech, no confusion, no convulsions, no loss of vision, no weakness - Psychiatric Psychiatric: no confusion - Constitutional Vitals: Temp Pulse Resp BP Pulse Ox 98.5 F 82 18 119/78 99 07/28/18 08:51 07/28/18 11:47 07/28/18 11:47 07/28/18 11:47 07/28/18 11:47 Exam: Gen.: Vitals noted. No acute distress. AAOx3 HEENT: oropharynx clear, Normocephalic, atraumatic Cardiac: RRR, no murmur, +S1/S2 Pulmonary: CTA bilaterally, no wheezes, rales or rhonchi, equal chest expansion Abdomen: soft, nontender, Bowel sounds noted, no guarding MSK: ROM intact, no joint swelling noted Extremities: no BLE edema, nontender calf, no cyanosis or clubbing Neuro: A&Ox3, moves all extremities, right facial droop, 5/5 Strength upper and lower extremities bilaterally. Right-sided facial numbness. Cerebellar testing normal. Psych: Appropriate mood and behavior Internal Med - H&P Results - Labs CBC & Chem 7: 07/28/18 09:11 07/28/18 09:11 Labs: Short CBC 07/28/18 Range/Units 09:11 WBC 5.9 (4.3-11.1) K/mcL Hgb 14.0 (11.5-15.4) g/dL Hct 41.5 (35.3-44.9) % Plt Count 168 (140-400) K/mcL BMP 07/28/18 09:11 Sodium 137 Potassium 4.1 Chloride 107 Carbon Dioxide 23 BUN 12 Creatinine 0.81 Glucose 110 H Calcium 9.1 Cardiac Enzymes 07/28/18 Range/Units 09:11 Troponin I < 0.03 (< 0.04) ng/mL - Impressions ITS Impressions Head CT 07/28/18 08:59 IMPRESSION: No acute intracranial abnormality. D/ / 07/28/2018 09:21:35 Regina Vazquez MD / tobias Interpreting Provider: Regina Vazquez MD - Assessment and Plan (1) Headache Current Visit: Yes Status: Acute Assessment and plan: 33yo female with past medical history of migraines, SLE, Sjogren's who presented complaining of a headache since Friday has been constant and ache and new today right-sided facial droop. It felt similar to previous migraines however, today she woke up with right-sided facial droop that she has never had before. She has numbness to the right side of her face. Initially she has oral, photosensitivity, noise sensitivity, nausea, vomiting, diplopia all symptoms that she usually has with her migraines. Taking Aimovig and Trokendi prophylactically. Cannot take sumatriptan due to lock jaw like reaction. In ED she was given Benadryl, Toradol, Reglan, aspirin. -Differential includes most likely a complicated migraine however still consider stroke, Chin's palsy, brain tumor. No history of blood clotting disorder. Hemorrhagic stroke ruled out on head CT. -CBC, BMP, troponin unremarkable -head CT negative for acute intracranial abnormality -On exam patient has right-sided facial drip that includes the forehead, numbness right-sided face. Patient reports facial droop and numbness has improved since admission. Strength 5/5 b/l upper and lower extremities. Reflexes 2/4. Cerebellar testing normal. Plan -brain MRI pending -neurology consulted, recommendations appreciated patient will likely need follow-up outpatient as her previous neurologist is in [place]. -Continue symptomatic treatment with Reglan, Toradol, Zofran PRN -continue NIHSS assessments -continue telemetry Qualifiers: Headache chronicity pattern: acute headache Intractability: intractable Qualified Code(s): R51 - Headache (2) Right facial numbness Current Visit: Yes Status: Acute Assessment and plan: see plan abive (3) Migraine Current Visit: Yes Status: Acute Assessment and plan: hx of migraines taking Aimovig and Trokendi that have improved her migraines from 2 times a week to 2 times a month. Previous neurologist is in [place]. -Continue home Lamictal, Lyrica Qualifiers: Migraine type: with aura Status migrainosus presence: with status migrainosus Intractability: intractable Qualified Code(s): G43.111 - Migraine with aura, intractable, with status migrainosus (4) SLE (systemic lupus erythematosus) Current Visit: Yes Status: Acute Assessment and plan: history of SLE that is controlled with sulfasalazine, Aldactone, prednisone, Lyrica, Plaquenil. Continue home medications. Qualifiers: Systemic lupus erythematosus type: unspecified Systemic lupus erythematosus organ involvement: unspecified Qualified Code(s): M32.9 - Systemic lupus erythematosus, unspecified (5) DVT prophylaxis Current Visit: Yes Status: Acute Assessment and plan: SCD - Time Spent With Patient Total time spent is greater than 50% in coordination of care (as documented) at patient's floor/unit and/or counseling patient: <Laura Gonzalez - Last Filed: 07/28/18 17:05> Date of Encounter: 07/28/18 Internal Medicine - H&P: HPI History of present illness: Ms. José is a 33 year old female All Systems PM: A 10-system review of systems was performed and is negative for pertinent findings except as documented above in the HPI. - Constitutional Vitals: Temp Pulse Resp BP Pulse Ox 98.5 F 82 18 119/78 99 07/28/18 08:51 07/28/18 11:47 07/28/18 11:47 07/28/18 11:47 07/28/18 11:47 Internal Med - H&P Results - Labs CBC & Chem 7: 07/28/18 09:11 07/28/18 09:11 Labs: Short CBC 07/28/18 Range/Units 09:11 WBC 5.9 (4.3-11.1) K/mcL Hgb 14.0 (11.5-15.4) g/dL Hct 41.5 (35.3-44.9) % Plt Count 168 (140-400) K/mcL BMP 07/28/18 09:11 Sodium 137 Potassium 4.1 Chloride 107 Carbon Dioxide 23 BUN 12 Creatinine 0.81 Glucose 110 H Calcium 9.1 Cardiac Enzymes 07/28/18 Range/Units 09:11 Troponin I < 0.03 (< 0.04) ng/mL - Impressions ITS Impressions Head CT 07/28/18 08:59 IMPRESSION: No acute intracranial abnormality. D/ / 07/28/2018 09:21:35 Regina Vazquez MD / tobias Interpreting Provider: Regina Vazquez MD - Time Spent With Patient Total time spent is greater than 50% in coordination of care (as documented) at patient's floor/unit and/or counseling patient: - Attending Attestation I examined this patient and my medical decision-making was reviewed with the Res ident Physician Dr Zavala. I agree with the documented findings, disposition and treatment plan as described except to the extent set forth below. Ms José is being observed for headache and facial droop She confirmed she ryan NOT have sarcoid. She DOES have hyperglycemia on Trulicity and takes steroids frequently due to lupus flares. Last flare in recent weeks and tapering off steroids currently with dose 2mg daily. awake, at bedside. she is feeling near her baseline. She is stating this feels like her typical migraine but worse inthat she has never had muscle involvement in the face before. Currently mazariegos is mild and she has no other complaints. Denies any speech changes, swallowing difficulty, food tasting differently, ringing in ears, current vision changes, weakness/numbness or tingling other than in face. She s able to confirm all her home meds via [facility] on her phone of note, confirmed meds in med rec are not complete/inaccurate. we will order me ds based off info she provided directly to us. staff requested to update med list gen- alert, awake,appears stated age eyes- pupils equal round , eom intact cv- reg rate and rhythm, normal s1,s2, no murmurs appreciated, no le edema lungs- ctabl, normal reps effort on room air neuro- AAOx3, reduced sensation to lt touch entire right face, muscle paralysis entire right face, otherwise CN are grossly intact, strenght in all ext 5/5, sensation to light touch throughout all ext intact and equal Headache with new onset Right facial Droop rule out TIA, CVA, lupus flare given her hx, other differential includes complex migraine -CT head reviewed, MRI pending, will consult neuro, low suspicion CVA but tia/stroke protocol in place until MRI results -hold on further tx pending MRI result and neuro recs Lupus -cont home meds including steroid taper Mood D/O and Anxiety- pt confirmed home meds and they are ordered as is correct need staff to update med list as is incorrect and they are aware further dx and plan as noted by resident
[2018-07-28] MEDS ORDERED: Ketorolac 15 MG/ML VIAL IVP PRN (14:34)
[2018-07-28] MEDS ORDERED: hydrOXYzine pamoate 25 MG CAPSULE PO PRN (15:45)
--- NOTE | 2018-07-28 16:44 | Neurology - Consult Note ---
Date of Encounter: 07/28/18 Time of Encounter: 16:35 Assessment and Plan (1) Facial droop Current Visit: Yes Status: Acute P/W migraine h/a with photophobia, phonophobia Additionally having right perioral numbness and tingling, flattening of the nasolabial folds and right facial droop with heaviness the right face Sx have improved since administration of migraine cocktail but right facial flattening and droop persists CT head unremarkable MRI brain pending R/o Zahida's, recommend carotid duplex scan. Consider early Chin's palsy in differential as well but this is felt to be less likely Most likely complicated migraine presentation In the interim I agree with r/o of neurovascular event or organic pathology c/w neuro assessment per protocol Agree with tylenol and Toradol for h/a c/w medical and supportive care Neurology will follow in the a.m (2) Migraine Current Visit: Yes Status: Acute Qualifiers: Migraine type: with aura Status migrainosus presence: with status migrainosus Intractability: intractable Qualified Code(s): G43.111 - Migraine with aura, intractable, with status migrainosus (3) Right facial numbness Current Visit: Yes Status: Acute (4) SLE (systemic lupus erythematosus) Current Visit: Yes Status: Acute Qualifiers: Systemic lupus erythematosus type: unspecified Systemic lupus erythematosus organ involvement: unspecified Qualified Code(s): M32.9 - Systemic lupus erythematosus, unspecified History of Present Illness Chief complaint: Right-sided perioral numbness and tingling and migraine HPI: Ms. José is a 33 year old female with a PMH of Sjogren syndrome, lupus, sarcoidosis, migraines. She presents to [facility] [place] with the chief complaint of migrai ne headache, right-sided facial droop and right perioral numbness and tingling. She reports a history of migraines and is taking Aimovig and Trokendi and reports adequate management with approximately 2 migraines a month. She reports that her symptoms began Friday with her typical prodrome including scotoma, photophobia and phonophobia. On Friday her migraine symptoms progressed to include right perioral numbness and tingling which she reports as also normal for her typical migraine presentation. However, her migraines persisted into today where she began to experience nausea and vomiting and right facial droop as well as slurred speech. Upon my examination the patient reports that teresa arndt is improving after receiving a migraine cocktail. She states that the slurred speech has resolved. However, the periwound numbness and tingling and facial heaviness persists. She admits to intermittent dizziness migraine headache but denies any dysphagia, dysarthria, unilateral weakness, chest pain, palpitations. She denies any prior history of CVA. A CT of the head was completed in the ED and negative for acute intracranial abnormality. Given her complex history she is being admitted for further workup and evaluation. Thank you for consulting neurology. Past Med Surg Social Fam HX - Past Medical History Medical history: migraine, other Additional medical history: SLE, Sjogren Psychiatric history: no psych history - Past Surgical History Surgical History: , other Additional surgical history: D&C, ablation - Social History Smoking Status: Never smoker Smokeless Tobacco Status: No Alcohol use: none Drug use: none - Family History Grandmother Hx Family Cardiac Disorders: Yes (NM) Medications and Allergies Metoclopramide [Reglan] 10 mg PO QIDAC #12 tablet 02/19/17 [Rx] Amitriptyline [Elavil] 25 mg PO DAILY 07/28/18 [History] Atorvastatin Calcium [Lipitor] 20 mg PO DAILY 07/28/18 [History] Baclofen 10 mg PO PRN PRN MDD 3 07/28/18 [History] Erenumab-Aooe [Aimovig Autoinjector] 70 mg SQ QMONTH 07/28/18 [History] Hydroxychloroquine Sulfate [Plaquenil] 200 mg PO BID 07/28/18 [History] Ibuprofen [Ibu] 800 mg PO TID 07/28/18 [History] Lamotrigine [Lamictal (Blue)] 50 mg PO BID 07/28/18 [History] Pantoprazole Sodium [Protonix] 40 mg PO DAILY 07/28/18 [History] Prazosin [Minipress] 1 mg PO DAILY 07/28/18 [History] Sertraline [Zoloft] 200 mg PO DAILY 07/28/18 [History] hydrOXYzine HCl [Hydroxyzine HCl] 100 mg PO TID 07/28/18 [History] Allergy/AdvReac Type Severity Reaction Status Date / Time Amoxicillin Allergy Hives Verified 01/13/17 11:35 Cephalosporins Allergy Hives Verified 01/13/17 11:35 Penicillins Allergy Hives Verified 01/13/17 11:35 shellfish derived Allergy Difficulty Verified 01/13/17 11:35 Breathing All Systems: The remainder of the systems were reviewed and are negative Review of Systems: REVIEW OF SYSTEMS GENERAL: Negative for any nausea, vomiting, fevers, chills NEUROLOGIC: Negative for any blurry vision, blind spots, double vision, facial asymmetry, dysphagia, hemiparesis, hemisensory deficits, vertigo, ataxia, seizures, paralysis,unilateral weakness Positive - Right facial asymmetry, dysarthria, migraine h/a with visual scotoma, perioral numbness/tingling HEENT: Negative for any head trauma, neck trauma, neck stiffness Positive - photophobia, phonophobia CARDIAC: Negative for any chest pain, dyspnea, peripheral edema or palpitations GASTROINTESTINAL: Negative for any abdominal pain Positive - nausea, vomiting ENDOCRINE: Thyroid trouble, heat/cold intolerance MUSCULOSKELETAL: negative for focal weakness Physical Examination - Vital Signs Vital Signs: Initial Vital Signs Temp Pulse Resp BP Pulse Ox 98.5 F 85 14 159/99 100 07/28/18 08:51 07/28/18 08:51 07/28/18 08:51 07/28/18 08:51 07/28/18 08:51 - Exam Exam: Examination: General Examination: *CONSTITUTIONAL: Alert and oriented x3, no acute distress *GENERAL APPEARANCE OF PATIENT appears healthy and well groomed *EYES: pupils equal, round, reactive to light and accommodation, conjunctiva clear without masses or ulcerations, fundi normal. *CARDIOVASCULAR no peripheral edema, distal temperature normal, dorsalis pedis pulses normal. See vitals Musculoskeletal: *GAIT AND STATION normal, with normal Romberg testing, no abnormalities such as broad base gait or spasticity *ASSESSMENT OF MUSCLE STRENGTH IN THE UPPER AND LOWER EXTREMITIES bilateral deltoid, bicep, tricep, barn manager strength, hip flexors ,anterior tibialis, dorsoflexion of the foot 5/5 *MUSCLE TONE IN THE UPPER AND LOWER EXTREMITIES normal. No abnormal movements, fasciculations or atrophy identified. Neurological: *ORIENTATION to person, situation, time and place *RECURRENT AND REMOTE MEMORY intact *ATTENTION AND CONCENTRATION are normal *LANGUAGE FUNCTION no significant aphasia or dysarthia was noted. *FUND OF KNOWLEDGE aware of current events, past history, vocabulary *MENTAL attention span and concentration normal. *CN II optic fundi were normal, no papilledema noted. *CN III,IV, PERRLA extraocular eye movements were full, no nystagmus and no ptosis noted. *CN V shows normal sensation and jaw opens symmetrically. *CN VII shows abnormal facial movement with flattening of the nasal labial folds and decreased forehead wrinkles. However, she innervates symmetrically, upper and lower bilaterally. *CN VIII shows no significant hearing loss on exam *CN IX,,X palate elevated symmetrically *CN XI normal strength in the sternocleidomastoid muscles, symmetrical shoulder shrugging. *CN XII tongue protruded in the midline, with normal strength and movement. *SENSORY EXAMINATION light touch intact *REFLEXES: deep tendon reflexes were normal and symmetrical , grade 2/4 diffusely, no pathological reflexes were noted. *CEREBELLAR TESTING normal finger to nose, heel/knee/stallworth *PAIN LEVEL Migraine headache left forehead Results - Laboratory Findings CBC and BMP: 07/28/18 09:11 07/28/18 09:11 Abnormal lab findings: Abnormal lab results MPV 8.9 fL (9.4-12.4) L 07/28/18 09:11 Glucose 110 mg/dL (70-105) H 07/28/18 09:11 - Diagnostic Findings Additional findings: CT/CT stroke alert head wo con IMPRESSION: No acute intracranial abnormality. Consult Discharge Plan - Plan Referrals: Vinicius Haley [Primary Care Provider] -
--- NOTE | 2018-07-28 16:53 | Electrocardiograph Report ---
[address] [address] Test Date: 2018-07-28 Pat Name: Deanna José Department: EXAM4 Room: Gender: F Deck Steward: : 1985 Requested By: Cristobal Sawyer Order Number: [id number] Reading MD: June Carr Measurements Intervals [place] Rate: 78 P: 39 ME: 155 QRS: 24 QRSD: 98 T: 21 QT: 397 QTc: 453 Interpretive Statements Sinus rhythm Electronically Signed On 07-28-2018 16:51:25 EDT by June Carr
[2018-07-28] MEDS: lamoTRIgine 25 MG TABLET PO SCH (20:34)
[2018-07-28] MEDS: Pregabalin 50 MG CAPSULE PO SCH (20:34)
[2018-07-28] MEDS ORDERED: LAMOTRIGINE 50 MG PO SCH (21:00)
[2018-07-29 07:12] VITALS: BP 131/84
[2018-07-29] MEDS ORDERED: predniSONE 1 MG TABLET PO SCH (09:00)
[2018-07-29] MEDS ORDERED: Spironolactone 25 MG TABLET PO SCH (09:00)
[2018-07-29] MEDS ORDERED: sulfaSALAzine 500 MG TABLET PO SCH (09:00)
--- NOTE | 2018-07-29 09:15 | Discharge Summary ---
- NOTES TO OUTPATIENT PROVIDER Notes to Outpatient Provider: Patient admitted for complicated migraine. Stroke was ruled out by negative head CT, carotid ultrasound, brain MRI. Patient reported having a referral to a neurologist at [facility]. She is to continue her home medications for migraine. Date of Encounter: 07/29/18 Time of Encounter: 08:45 - Discharge Diagnosis (1) Headache Priority: Primary Status: Acute Qualifiers: Headache chronicity pattern: acute headache Intractability: intractable Qualified Code(s): R51 - Headache (2) Migraine Priority: Secondary Status: Acute Qualifiers: Migraine type: with aura Status migrainosus presence: with status migrainosus Intractability: intractable Qualified Code(s): G43.111 - Migraine with aura, intractable, with status migrainosus (3) Right facial numbness Priority: Secondary Status: Acute (4) SLE (systemic lupus erythematosus) Priority: Secondary Status: Acute Qualifiers: Systemic lupus erythematosus type: unspecified Systemic lupus erythematosus organ involvement: unspecified Qualified Code(s): M32.9 - Systemic lupus erythematosus, unspecified (5) DVT prophylaxis Priority: Secondary Status: Acute Hospital course: Ms. José is a 33 year old female with past medical history of SLE, sjogren, migraines presented to [facility] complaining of headache and facial droop. The patient reported that her headache started Friday and has been constant since with the feeling of deep ache. This feels similar to previous migraines however in the past it was on the top of her head and this time it is more localized to the top right. She has associated aura, photosensitivity, noise sensitivity, nausea, vomiting, and diplopia. Laying down a quiet room has helped. 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 Yesterday the left side of her neck was hurting but has since resolved. She came to the hospital because this morning she woke up and the right side of her face felt heavy and numb and when she looked in the mere she had right facial droop. In the past only her eye has ever felt heavy. She reports she has been to the ED multiple times in the past when her migraines make her vomit and she is given medications which help relieve the migraine and then she is discharged. She denied trauma, confusion, loss of vision, weakness, chest pain, shortness of breath, fever, chills. She has history of migraines for which she takes Aimovig and Trokendi prophylactically which have decreased her migraines from 2 times a week to 2 times a month. She is to follow with a neurologist in [place] whom diagnosed her with hemiplegic migraines. She denied smoking, alcohol, drug use. No personal or family history of clotting disorder. Her grandmother and grandfather mom side did of [place]. She is a full code. Initial vitals in the ED were tempter 98.5, HR 85, BP 159/99. CBC, BMP, PT/INR, troponin were all unremarkable. Head CT showed no acute intracranial abnormality. In the ED the patient was given Reglan, Toradol, Benadryl, aspirin 324 mg, IVF bolus. During admission urology was consulted and believed she most likely had a complicated migraine. A carotid ultrasound and brain MRI were ordered them or both unremarkable for acute abnormality including ischemic stroke or tumor. The patient's headache had significantly improved and was tolerable to the point that she stated she has been to multiple baseball games with that degree of headache. She reported the numbness on the right side of her face had almost resolved. The heaviness and droopiness of the right side of the face had improved. She reported that she has a neurologist referral at [facility] that she is supposed to start following with. Her was at the bedside. She was informed of the image findings and diagnosis of a most likely a complicated migraine. She was alert and oriented times 3 in no acute distress. She denied fever, chills, neck pain, chest pain, shortness of breath. She was instructed to follow up with her neurologist at [facility] and her primary care provider. She is to continue her home medications for her migraines. She is to return to the hospital should she develop increased headache, fever, chills, confusion. She stated clear understanding of the treatment plan. Discharge discussed with: patient, family, nurse - Time Spent with Patient Total time spent providing and/or coordinating discharge services: Time spent: Greater than 30 minutes - Discharge Medications Prescriptions: Continued Erenumab-Aooe [Aimovig Autoinjector] 70 mg SQ QMONTH Hydroxychloroquine Sulfate [Plaquenil] 200 mg PO BID Prazosin [Minipress] 1 mg PO QPM hydrOXYzine HCl [Hydroxyzine HCl] 100 mg PO BID Pantoprazole Sodium [Protonix] 40 mg PO DAILY Atorvastatin Calcium [Lipitor] 20 mg PO QPM Celecoxib [Celebrex] 200 mg PO BID Dulaglutide [Trulicity] 1.5 mg PO FR Duloxetine HCl [Cymbalta] 60 mg PO BID lamoTRIgine [Lamictal] 50 mg PO BID Metoclopramide HCl 5 mg PO ACHS PRN PRN Reason: CRAMPING Orphenadrine Citrate [Orphenadrine Citrate ER] 100 mg PO DAILY predniSONE [PredniSONE] 2 mg PO QAM Pregabalin [Lyrica] 50 mg PO BID Spironolactone [Aldactone] 25 mg PO DAILY sulfaSALAzine [Sulfasalazine] 500 mg PO BID Topiramate [Trokendi Xr] 100 mg PO DAILY Home Medications: Atorvastatin Calcium [Lipitor] 20 mg PO QPM 07/28/18 [History] Erenumab-Aooe [Aimovig Autoinjector] 70 mg SQ QMONTH 07/28/18 [History] Hydroxychloroquine Sulfate [Plaquenil] 200 mg PO BID 07/28/18 [History] Pantoprazole Sodium [Protonix] 40 mg PO DAILY 07/28/18 [History] Prazosin [Minipress] 1 mg PO QPM 07/28/18 [History] hydrOXYzine HCl [Hydroxyzine HCl] 100 mg PO BID 07/28/18 [History] Celecoxib [Celebrex] 200 mg PO BID 07/29/18 [History] Dulaglutide [Trulicity] 1.5 mg PO FR 07/29/18 [History] Duloxetine HCl [Cymbalta] 60 mg PO BID 07/29/18 [History] Metoclopramide HCl 5 mg PO ACHS PRN 07/29/18 [History] Orphenadrine Citrate [Orphenadrine Citrate ER] 100 mg PO DAILY 07/29/18 [History] Pregabalin [Lyrica] 50 mg PO BID 07/29/18 [History] Spironolactone [Aldactone] 25 mg PO DAILY 07/29/18 [History] Topiramate [Trokendi Xr] 100 mg PO DAILY 07/29/18 [History] lamoTRIgine [Lamictal] 50 mg PO BID 07/29/18 [History] predniSONE [PredniSONE] 2 mg PO QAM 07/29/18 [History] sulfaSALAzine [Sulfasalazine] 500 mg PO BID 07/29/18 [History] Allergies/Adverse Reactions: Allergy/AdvReac Type Severity Reaction Status Date / Time Amoxicillin Allergy Hives Verified 07/29/18 09:23 Cephalosporins Allergy Hives Verified 07/29/18 09:23 Penicillins Allergy Hives Verified 07/29/18 09:23 shellfish derived Allergy Difficulty Verified 07/29/18 09:23 Breathing Date of admission: 07/28/18 11:52 Primary care physician: Vinicius Haley Consults: 07/28/18 15:27 Consult to Neurology [CONS] Routine Consulting Provider: Neurology [facility] Reason for Consult: new right facial droop. hx migraines. head Ct normal. MRI pending Call Completed: Yes Discharging clinician: Jose North Anticipated date of discharge: 07/29/18 - Constitutional Vitals: Temp Pulse Resp BP Pulse Ox 98.1 F 62 17 131/84 98 07/29/18 07:11 07/29/18 07:11 07/29/18 07:11 07/29/18 07:11 07/29/18 07:11 Exam: Gen.: Vitals noted. No acute distress. AAOx3 HEENT: oropharynx clear, Normocephalic, atraumatic Cardiac: RRR, no murmur, +S1/S2 Pulmonary: CTA bilaterally, no wheezes, rales or rhonchi, equal chest expansion Abdomen: soft, nontender, Bowel sounds noted, no guarding MSK: ROM intact, no joint swelling noted Extremities: no BLE edema, nontender calf, no cyanosis or clubbing Neuro: A&Ox3, moves all extremities, right facial droop, 5/5 Strength upper and lower extremities bilaterally. Right-sided facial numbness. Cerebellar testing normal. Psych: Appropriate mood and behavior - Patient Status Disposition: Home, Self-Care Condition: Fair Functional capacity at discharge: independent ambulation Overall status at discharge: patient is progressing back to baseline - Discharge Instructions Follow Up With: Vinicius Haley [Primary Care Provider] - Additional Instructions: - Continue taking your migraine medications -Follow-up with her primary care provider and 1 to 2 weeks -Follow-up with your neurologist -Return to the hospital should you develop fever, chills, worsened headache, confusion - Diet and Activity Activity: resume usual activities as tolerated Diet: advance to your usual diet
[2018-07-29] MEDS: lamoTRIgine 25 MG TABLET PO SCH (09:51)
[2018-07-29] MEDS: Pregabalin 50 MG CAPSULE PO SCH (09:55)
== END 2018-07-29 11:22 | disposition home or self-care (01) ==
LOC: 3BNU 08:48 → EMEROOARM 08:48 → SUATTDRO 11:52 → 3BNU 12:22
PROVIDERS: ADMIT Internal Medicine; ATTEND Internal Medicine

== ENCOUNTER 2021-06-04 05:56 | Observation (INO) ==
[2021-06-04] MEDS ORDERED: Clindamycin 900 MG/50 ML 900 MG/50 ML IV.SOLN IVPB ONE (06:10)
[2021-06-04] MEDS ORDERED: Ringers Solution, Lactated 1,000 ML IVC SCH (06:15)
[2021-06-04] MEDS ORDERED: Famotidine 20 MG TABLET PO ONE (07:00)
[2021-06-04] MEDS ORDERED: *HR* OxyCODONE Immed Rel 5 MG TABLET PO PRN (07:00)
[2021-06-04] MEDS ORDERED: Gabapentin 300 MG CAPSULE PO ONE (07:00)
[2021-06-04] MEDS ORDERED: tiZANidine 4 MG TABLET PO PRN (07:00)
[2021-06-04] MEDS ORDERED: Scopolamine Patch 1.5 MG PATCH.TD72 TD ONE (07:04)
[2021-06-04] MEDS ORDERED: Promethazine 6.25 MG in Water for inj. (sterile) 20 ML IVPB PRN (07:04)
[2021-06-04] MEDS ORDERED: Vancomycin 1,000 MG VIAL ONE (07:08)
[2021-06-04] MEDS ORDERED: Lidocaine HCL 4 ML Topical Solution (Laryng-O-Jet Kit Sterile Pak) TP ONE (07:23)
[2021-06-04] MEDS ORDERED: Ondansetron 4 MG/2 ML VIAL ONE (07:23)
[2021-06-04] MEDS ORDERED: Lidocaine -MPF 2% 2 ML VIAL ONE (07:23)
[2021-06-04] MEDS ORDERED: *HR* Midazolam HCl 2 MG/2 ML VIAL ONE ×2 (07:23→11:16)
[2021-06-04] MEDS ORDERED: *HR* Succinylcholine 200 MG/10 ML VIAL IVP ONE (07:23)
[2021-06-04] MEDS ORDERED: *HR* Rocuronium Bromide 50 MG/5 ML VIAL ONE (07:23)
[2021-06-04] MEDS ORDERED: *HR* Remifentanil 2 MG VIAL IVP ONE ×2 (07:24→12:22)
[2021-06-04] MEDS ORDERED: *HR* Propofol 200 MG/20 ML VIAL IVP ONE (07:24)
[2021-06-04] MEDS ORDERED: *HR* FentaNYL (PF) 100 MCG/2 ML VIAL ONE (07:37)
[2021-06-04] MEDS ORDERED: Polymyxin B Sulfate 500,000 UNIT, Sodium Chloride IRRigation 1,000 ML IR ONE (07:45)
[2021-06-04] MEDS ORDERED: *HR* Magnesium Sulfate 1 GM/2 ML VIAL ONE (10:29)
[2021-06-04] MEDS ORDERED: *HR* HYDROMORPHONE 2 MG/ML VIAL ONE (11:09)
[2021-06-04] MEDS ORDERED: *HR* FentaNYL (PF) 100 MCG/2 ML VIAL IVP PRN (11:32)
[2021-06-04] MEDS ORDERED: Ondansetron 4 MG/2 ML VIAL IVP PRN ×2 (11:38→12:43)
[2021-06-04] MEDS: *HR* HYDROmorphone PF 0.5 MG/0.5 ML SYRINGE IVP PRN ×2 (11:53→12:08)
[2021-06-04] MEDS ORDERED: Acetaminophen 325 MG TABLET PO PRN (12:43)
[2021-06-04] MEDS ORDERED: Naloxone 0.4 MG/ML INJ IVP PRN (12:43)
[2021-06-04] MEDS: *HR* OxyCODONE Immed Rel 5 MG TABLET PO PRN ×2 (14:38→18:40)
[2021-06-04] MEDS: Clindamycin 900 MG/50 ML 900 MG/50 ML IV.SOLN IVPB SCH ×2 (14:39→23:23)
[2021-06-04] MEDS: tiZANidine 4 MG TABLET PO SCH ×2 (14:39→20:00)
[2021-06-04] MEDS: Pregabalin 75 MG CAPSULE PO SCH ×2 (14:39→20:00)
[2021-06-04] MEDS: Ringers Solution, Lactated 1,000 ML IVC SCH (18:57)
[2021-06-04] MEDS: Lithium Carbonate 300 MG CAPSULE PO SCH (20:00)
[2021-06-05] MEDS: *HR* OxyCODONE Immed Rel 5 MG TABLET PO PRN ×2 (05:02→17:53)
[2021-06-05] MEDS: Pregabalin 75 MG CAPSULE PO SCH ×3 (09:00→21:01)
[2021-06-05] MEDS: *HR* HYDROcodone/Acet 5/325 mg TABLET PO PRN ×2 (09:00→15:53)
[2021-06-05] MEDS: tiZANidine 4 MG TABLET PO SCH ×3 (09:00→21:01)
[2021-06-05] MEDS: Lithium Carbonate 300 MG CAPSULE PO SCH ×2 (09:02→21:01)
[2021-06-05] MEDS: Ringers Solution, Lactated 1,000 ML IVC SCH (13:17)
[2021-06-06] MEDS: *HR* OxyCODONE Immed Rel 5 MG TABLET PO PRN ×3 (03:54→15:14)
[2021-06-06] MEDS: Pregabalin 75 MG CAPSULE PO SCH ×3 (08:45→20:22)
[2021-06-06] MEDS: Lithium Carbonate 300 MG CAPSULE PO SCH ×2 (08:45→20:22)
[2021-06-06] MEDS: tiZANidine 4 MG TABLET PO SCH ×3 (08:46→20:22)
[2021-06-06] MEDS: Simethicone 80 MG TAB.CHEW PO SCH ×3 (09:38→20:22)
[2021-06-06 23:53] VITALS: O2SAT 96
[2021-06-07] MEDS: *HR* OxyCODONE Immed Rel 5 MG TABLET PO PRN ×2 (04:50→09:06)
[2021-06-07 06:29] VITALS: BP 142/77; PULSE 85; TEMP 98.9
[2021-06-07] MEDS: Simethicone 80 MG TAB.CHEW PO SCH (09:06)
[2021-06-07] MEDS: Lithium Carbonate 300 MG CAPSULE PO SCH (09:06)
[2021-06-07] MEDS: Pregabalin 75 MG CAPSULE PO SCH (09:06)
[2021-06-07] MEDS: tiZANidine 4 MG TABLET PO SCH (09:06)
== END 2021-06-07 12:17 | disposition home or self-care (01) ==
LOC: 4WAOSI 05:56 → SDCAOSI 05:56 → 4WAOSI 12:20
PROVIDERS: ADMIT Orthopaedic Surgery Orthopaedic Surgery of the Spine; ATTEND Orthopaedic Surgery Orthopaedic Surgery of the Spine